=== PATIENT | male | born 1955 | race Caucasian/White ===

== ENCOUNTER 2016-12-09 07:48 | Outpatient (CLI) | payer OTHER ==
--- NOTE | 2016-12-09 09:28 | Ultrasound Report ---
Sonogram abdomen: History: Constipation, epigastric pain. Abdominal distention. Findings: Normal aorta and inferior vena cava appear normal liver. No intrahepatic or extra hepatic dilatation. Common bile duct diameter 5.1 mm. Gallbladder wall thickness 2.2 mm. No calculi in the gallbladder. Right kidney 10.9 x 3.8 x 4.7 cm. Cortical thickness 1.5 cm. Left kidney 11.2 x 5.2 x 5.4 cm. Cortical thickness 1.7 cm. Spleen measures 7.7 cm which is normal. Pancreas obscured by bowel gas. Impression: Essentially negative sonogram of the abdomen.
== END 2016-12-09 07:49 | disposition home or self-care (01) ==
LOC: US 07:48
PROVIDERS: ATTEND Internal Medicine Gastroenterology
DX: K58.9 Irritable bowel syndrome, unspecified (principal); K59.09 Other constipation; R14.0 Abdominal distension (gaseous)
CPT/HCPCS: 76700

== ENCOUNTER 2018-05-30 07:57 | Day surgery (SDC) | payer OTHER ==
[2018-05-30] MEDS ORDERED: XYLOCAINE 2% INFILTRATI ONE (08:10)
[2018-05-30] MEDS ORDERED: DIPRIVAN 10 MG/ML IV ONE ×3 (08:10→10:06)
[2018-05-30] MEDS ORDERED: WATER FOR IRRIG STERILE ONE (08:32)
[2018-05-30] MEDS ORDERED: WATER FOR IRRIG STERILE IR ONE (08:33)
[2018-05-30] MEDS ORDERED: NACL 0.9% 100 ML ONE (08:38)
[2018-05-30] MEDS ORDERED: NACL 0.9% 1000 ML 1,000 ML IV SCH (09:00)
[2018-05-30] MEDS ORDERED: XYLOCAINE 2% UROJET ONE (10:04)
--- NOTE | 2018-05-30 10:40 | Operative Report ---
Operative Report Operative Report: Date of procedure: 05/30/2018 Procedure: Colonoscopy with cold biopsy polypectomy Hemorrhoidal Band Ligation Attending physician: Avinash Tsang MD Cnc Milling Machine Operator: Avinash Tsang MD Indication: Patient is a 62-year-old male who presents for colonoscopy. He has a history of rectal bleeding and rectal pain and change in bowel habits. A colonoscopy serves to evaluate patients symptoms so that treatment may be directed based on the findings. Consent: Informed consent was obtained after advising the patient and family regarding nature of this procedure, its indications, potential benefits as well as possible complications including but not limited to bleeding perforation and adverse reaction to medication, infection as well as other cardiopulmonary complications. An informed written and verbal consent was then obtained after due opportunity was provided for questions and answers. Monitoring: Patient was monitored continuously with pulse oximetry and electrocardiographic recordings as well as blood pressure recordings. Vital signs remained stable throughout this procedure with no untoward events. Preoperative assessment: Patient was assessed immediately prior to this procedure for capacity to tolerate monitored anesthesia care and moderate sedation as well as general anesthesia. Patient's ASA classification is 2, Mallampati class is 2, Hyomental distance is 3. Instrument: Fujinon videocolonoscope. Fujinon video endoscope. Multiple band ligator: Speedband SuperView Super 7 ([facility]) Medications: Propofol given intravenously in divided doses. For details please refer to anesthesia records. Description of procedure: Patient was placed in the left lateral decubitus position after achieving sedation, a digital rectal examination was performed following which the colonoscope was introduced into the anal verge and advanced to the cecum which was identified by the cecal valve, the appendiceal orifice, as well as by the cecal strap and direct transillumination. The colonoscope was subsequently withdrawn with careful inspection of all mucosal surfaces. Patient tolerated this procedure well and was subsequently taken to the recovery room. The following findings were noted. Findings: Patient had 2 diminutive polyps in the rectum, which were completely removed with a colod biopsy. The rest of the colon to the cecum was normal. On the retroflex view at the anal verge, patient had prominent large friable large internal hemorrhoids. After completing the colonoscopic examination, the Fujinon video endoscope was preloaded with the multiple band ligator. It was then reintroduced into the rectum after using lidocaine gel to anesthetize the rectum. Following this, in a retroflexed view, multiple bands were applied over the internal hemorrhoids. In all, all 4 bands were applied due to size of internal hemorrhoids. All bands were applied above the dentate line. Patient tolerated the procedure well with no untoward events. Impression: Multiple rectal polyps status post colod biopsy polypectomy Prominent friable Internal hemorrhoids, status post successful hemorrhoidal band ligation. Plan: Follow-up pathology report Daily sitz baths. High-fiber diet. Patient to apply lidocaine ointment 5% per rectum every 6 hours as needed. Anusol HC suppositories per rectum every night. Patient to use stool softeners as needed. MiraLAX 17 g in 8 ounce glass of water has been prescribed. Tramadol 50 mg every 6 hours as needed for pain. Patient is scheduled for further outpatient follow-up. Patients further instructed that if he has persistent bleeding and or fevers to call the office immediately..
--- NOTE | 2018-05-30 10:45 | Discharge Summary ---
Short Stay Discharge Plan Activity: advance as tolerated Weight Bearing Status: Weight Bear as Tolerated Diet: regular Additional Instructions: Post Sedation D/C Instructions When you return home you may resume your regular diet unless otherwise directed. -Go directly home from the hospital and rest quietly. You may resume normal activities tomorrow. -Do NOT drive, return to work, operate any machinery or make any important personal or business decisions today. -Do NOT drink any alcohol or take nerve or sleeping drugs. They add to the effects of the medicine still present in your body. Follow up with Dr. Tsang in 2 weeks to obtain pathology results and treatment plan. Preform daily sitz bath. High Fiber Diet Use stool softeners as needed. Follow up with: SUE WEEKS MD [Primary Care Provider] - 7 Days
[2018-05-30 10:56] VITALS: BP 105/78
== END 2018-05-30 07:58 | disposition home or self-care (01) ==
LOC: GIO 07:57
PROVIDERS: ATTEND Internal Medicine Gastroenterology
DX: K62.89 Other specified diseases of anus and rectum (principal); K64.8 Other hemorrhoids; I10 Essential (primary) hypertension; B18.1 Chronic viral hepatitis B without delta-agent; K63.5 Polyp of colon; K21.9 Gastro-esophageal reflux disease without esophagitis; K63.89 Other specified diseases of intestine; Z87.891 Personal history of nicotine dependence; Z90.49 Acquired absence of other specified parts of digestive tract; Z98.890 Other specified postprocedural states; Z91.041 Radiographic dye allergy status; Z79.899 Other long term (current) drug therapy
CPT/HCPCS: 45380; 45398; 88305; J2704; J7030